=== PATIENT | male | born 1960 | race Caucasian/White ===

== ENCOUNTER 2017-01-09 14:24 | Emergency (ER) | payer OTHER ==
[~2017-01-09] VITALS: Ht 180.3 cm; Wt 95.5 kg
[~2017-01-09 14:24] MED LIST: IBUP-1827 PO; IBUP200C11 PO; NAPR220C11 PO
[2017-01-09 14:27] VITALS: BP 140/94; PULSE 72; O2SAT 97
[2017-01-09 14:53] LABS: BASOPHILS % (AUTO) 0.5 % (0-3); MONOCYTES % (AUTO) 6.9 % (4-12); Mean Corpuscular Hemoglobin 30.7 pg (27.0-35.0); Mean Corpuscular Volume 91.3 fL (81-100); NEUTROPHILS % (AUTO) 44.4 % (40-74); Platelet Count 173 bil/L (150-400)
[2017-01-09] MEDS ORDERED: 0.9% Sodium Chloride 1,000 ML IV ONE (15:04)
--- NOTE | 2017-01-09 15:04 | ED.REPORT ---
[facility]-Abd [facility] M 40 and Over Date of Service January 09, 2017 ED Provider: Duncan Rosenthal PA-C Malachi is a 56-year-old male with a history of chronic lymphocytic leukemia presented with a chief complaint of abdominal pain. Patient reports abdominal tenderness first noted at urgent care earlier today when he was seen for back pain. He also reports black, watery stool since this morning as well as foul- smelling, "bright orange" urine. Also reports lower back pain that began yesterday when moving a large dresser. X-rays taken at [facility] yesterday. Diagnosed musculoskeletal back pain and discharged with prescription for naproxen and cyclobenzaprine. Patient does not find this helpful. Admits history of back surgery at [facility] in 2013. Reports history of 3 polyps removed from his large intestine 5 years ago and history of appendectomy. Denies vomiting. Denies weakness or pain in lower extremity. Denies fever, DM, HIV, organ transplant, immunosuppression, recent surgery, recent infection, IV drug use. Denies bowel/bladder dysfunction and saddle anesthesia. Nursing Notes Stated Complaint: ABDOMINAL PAIN/RLQ TENDERNESS, FROM .C Chief Complaint: Male Abdominal Pain Nursing Notes Reviewed: Yes Allergies: Coded Allergies: No Known Allergies (Verified , 10/07/14) Scheduled PRN Ibuprofen (Advil) 200 Mg Capsule 200 MG PO PRN PRN PRN For Pain Ibuprofen (Ibuprofen) 600 Mg Tablet 600 MG PO QID PRN PRN For Pain Naproxen Sodium (Aleve) 220 Mg Capsule 220 MG PO PRN PRN PRN For Pain oxyCODONE (oxyCODONE) 5 Mg Tablet 5-10 MG PO QID PRN PRN For Pain General Time Seen by MD: 14:36 Chief Complaint Abdominal pain Sudden in Onset?: No Past Medical History Past Medical History Chronic back pain Pilondial cyst Reports: Hypertension Past Surgical History Reports: Appendectomy Smoking History Former Smoker Social History Drug Use: THC Ambulatory Status Independent Review of Systems General: Denies fever, chills, malaise. HEENT: Denies congestion, headache, sore throat. Respiratory: Denies dyspnea, cough, shortness of breath, wheezing. Cardiovascular: Denies chest pain, palpitations. Gastrointestinal: Admits abdominal pain, diarrhea. Denies vomiting Genitourinary: Denies frequency, urgency, dysuria, hematuria. Otherwise as noted in HPI. Physical Exam General: Well appearing, well developed, well nourished, no acute distress. Head: Atraumatic, normocephalic. Eyes: No scleral icterus or injection. No discharge. Vision grossly intact. ENT: Voice clear, hearing grossly intact. Respiratory: Regular rate and rhythm. Breath sounds present, clear to auscultation and equal bilaterally. No respiratory distress. No increased work of breathing, speaks in complete sentences. Cardiovascular: Regular rate and rhythm, without murmur, gallop or rub. No pedal edema. Gastrointestinal: Obese abdomen epigastric and in the lower quadrants to rapid, deep palpation. Negative rebound. Bowel sounds normoactive. Scar right lower quadrant consistent with appendectomy. Mass appreciated near xiphoid process which patient reports is related to his leukemia. No pulsatile mass appreciated. Legs: Negative edema, PT and DP pulses 2+. Skin: Warm and dry. Neurological: Antalgic gait, toe walk, heel walk. Hip flexion, knee extension, ankle dorsiflexion and plantarflexion strength 5/5 B/L. Patellar and Achilles reflexes present and equal B/L. Sensation to light touch intact at medial leg, dorsal foot and lateral foot B/L. negative seated straight leg raise, negative seated cross straight leg raise. Psychological: Alert and oriented. Speech appropriate, linear and logical. Behavior appropriate. Initial Vital Signs Vital Signs (First) Date Time Temp Pulse Resp B/P Pulse Ox O2 Delivery O2 Flow Rate FiO2 01/09/17 14:27 36.8 72 140/94 97 Room Air 01/09/17 17:22 20 Initial VS: Vital signs abnormal (blood pressure) Interpretation & Diagnostics Lab Results Interpretation Result Diagram: 01/09/17 1445 01/09/17 1445 Test 01/09/17 14:45 01/09/17 17:35 White Blood Count 12.9th/mm3 (3.8-10.1) Red Blood Count 5.31mil/mm3 (4.40-5.80) Hemoglobin 16.3g/dL (13.8-17.2) Hematocrit 48.5% (41.0-50.0) Mean Corpuscular Volume 91.3fL (81-100) Mean Corpuscular Hemoglobin 30.7pg (27.0-35.0) Mean Corpuscular Hemoglobin Concent 33.6% (32.0-37.0) Red Cell Distribution Width 13.4% (12.3-15.4) Platelet Count 173bil/L (150-400) Neutrophils (%) (Auto) 44.4% (40-74) Lymphocytes (%) (Auto) 46.9% (14-46) Monocytes (%) (Auto) 6.9% (4-12) Eosinophils (%) (Auto) 1.0% (0-5) Basophils (%) (Auto) 0.5% (0-3) Sodium Level 143mEq/L (134-144) Potassium Level 3.8mEq/L (3.5-5.2) Chloride Level 102mEq/L (97-108) Carbon Dioxide Level 24mmol/L (18-29) Blood Urea Nitrogen 18mg/dL (6-24) Creatinine 1.25mg/dL (0.76-1.27) Estimat Glomerular Filtration Rate 64mL/min (>59) Glucose Level 94mg/dL (60-99) Calcium Level 9.5mg/dL (8.5-10.1) Magnesium Level 2.3mg/dL (1.6-2.6) Total Bilirubin 0.6mg/dL (0.0-1.2) Aspartate Amino Transf (AST/SGOT) 22U/L (0-50) Alanine Aminotransferase (ALT/SGPT) 16U/L (0-44) Alkaline Phosphatase 95U/L (25-150) Total Protein 7.5g/dL (6.4-8.4) Albumin 4.5g/dL (3.4-5.0) Lipase 29U/L (13-60) Hold Mauro Top Tube Received (Received) Hold Urine Received (Received) CT Abd / Pelvis Interpretation PROCEDURE: CT ABDOMEN AND PELVIS WITH CONTRAST TRAUMA (PNL 7509) INDICATIONS: abdominal pain IMPRESSION: 1. No acute traumatic injury. 2. Colonic diverticulosis without evidence of diverticulitis. 3. Hepatic cysts. 4. Status post cholecystectomy. 5. Congenital bowel malrotation. 6. Mildly prominent loops of small bowel in the right lower quadrant without definite obstruction, hematoma or adjacent edema. Interpretation / Wet Read by: Interpret - Radiologist Re-Eval/Medical Decision Med Decision/Clinical Course 56-year-old male with a chief complaint of abdominal pain which was discovered at the urgent care will use being assessed for back pain. Lower abdominal pain/ tenderness associated with black watery diarrhea today. Negative fever. Physical examination reveals normal vital signs but diffuse abdominal tenderness. Guaiac negative. Neurological examination is normal. Discussed this case with Dr. Dumont who met with and examine the patient. CBC reveals mild cytosis. CT abdomen and pelvis with contrast reveals several incidental findings but no acute cause of abdominal pain. Urinalysis is reassuring regarding pyelonephritis, kidney stone. Normal stool guaiac is reassuring against GI bleed. History of gradually worsening abdominal pain is reassuring against AAA, aorta is normal on CT. Back pain is without red flag symptoms for acute disc herniation, cauda equina, infection, hematoma, trauma. Normal plain films performed at [facility] and CT scan performed here reassuring against cancer metastasis. I believe this is musculoskeletal back pain. Believe this patient is stable and safe for discharge to home. Advise over the counter analgesia with a small amount of oxycodone to supplement with precautions. Advise primary care follow-up, return to return precautions. Initial question is the best my ability. Patient verbalizes understanding of and consent to the plan. Discharge & Departure Primary Impression: Abdominal pain Abdominal location: unspecified location Qualified Code: R10.9 - Unspecified abdominal pain Additional Impressions: Low back pain Chronicity: acute Back pain laterality: midline Sciatica presence: without sciatica Qualified Code: M54.5 - Low back pain Elevated blood pressure reading Disposition: Home Vital Signs - All Vital Signs Date Time Temp Pulse Resp B/P Pulse Ox O2 Delivery O2 Flow Rate FiO2 01/09/17 17:55 36.6 78 20 144/91 99 Room Air 01/09/17 17:22 36.6 78 20 144/91 99 Room Air 01/09/17 14:27 36.8 72 140/94 97 Room Air )( All Prior VS Reviewed: Yes Condition: Stable Patient Instructions: Acute Abdominal Pain (ED) Additional Instructions: Evaluation in the emergency department for abdominal pain and low back pain included history, physical, blood work, urinalysis and CT scan. These were all reassuring that her pain is not caused by an immediately dangerous condition. I believe you are stable and safe to be discharged home. Your abdominal pain is most likely caused by a viral diarrhea. Back pain appears to be musculoskeletal, and treatment is largely symptomatic: Rest is important, especially for the next couple of days, but avoid total bed rest. Reasonable activity as tolerated is the best. Apply ice to the affected area 4 times a day for 20 minutes over the next 24 hours. After that you will probably find warm compresses most helpful. The pain is best treated with 500 mg of naproxen (Aleve) every 12 hours, or 1000 mg of acetaminophen (Tylenol) every 6 hours. These drugs can be taken at the same time for more severe pain. I will also write a prescription for a small amount of oxycodone for pain not controlled by these 2 other medications. Please do not drive or drink alcohol within 4 hours of taking this medication and use extreme caution if you use it in conjunction with your cyclobenzaprine ( Flexeril). If you become too sedated, discontinue one or the other. Most of all be patient: 70-90% of people with injuries presenting like yours will resolve within 7 weeks, even without treatment. Follow-up with your primary care provider in about 5 days to be sure your recovery is progressing as expected. Return the emergency department for new or worsening symptoms such as loss of bowel/bladder control, numbness between your legs, new weakness/ numbness or high fever. Return to the emergency department for increasing abdominal pain, vomiting that makes it impossible to keep down liquids. I also note that your blood pressure was elevated during your visit to the emergency department. Please discuss this with your primary care provider. Referrals: DUY ULLOA (PCP) EDSupervising Provider for APC: Fernandez Manriquez DO Attending Statement I have seen and examined the patient. I have reviewed the chart and agree with the documentation as recorded by the Midlevel Provider, including assessment, treatment plan, and disposition. Findings from my exam are included in documentation above. copies to: DUY ULLOA Seth PA-C January 09, 2017 15:04 Fernandez Manriquez DO January 09, 2017 15:20
[2017-01-09] MEDS ORDERED: Pantoprazole 4 mg/mL 10 mL Inj IVPUSH ONE (15:05)
[2017-01-09] MEDS ORDERED: Ondansetron 2 mg/mL 2 mL Inj IVPUSH ONE (15:05)
[2017-01-09 15:28] LABS: Magnesium 2.3 mg/dL (1.6-2.6)
--- NOTE | 2017-01-09 16:36 | DRSVH ---
PROCEDURE: CT ABDOMEN AND PELVIS WITH CONTRAST TRAUMA (PNL 7509) INDICATIONS: abdominal pain TECHNIQUE: After the administration of intravenous contrast, 5 mm thick sections acquired from the diaphragms to the symphysis. 5 mm thick coronal and sagittal reformats were acquired. Optional 10-minute delayed imaging may be performed from the kidneys to the bladder. For radiation dose reduction, the followi ng was used: automated exposure control, adjustment of mA and/or kV according to patient size. COMPARISON: [facility], CT, ABD/PELVIS W/CON (PNL), 12/24/2014, 11:13. [facility], CT, ABDOMEN W CONTRAST, 11/08/2011, 15:14. FINDINGS: Image quality: Excellent. ABDOMEN: Lung bases: Lung bases are clear. Heart size is normal. No pericardial effusion. Inferior ribs ar e intact. No basal pleural effusions or pneumothorax. Solid organs: Liver and spleen are normal in size and enhancement, without lacerations. Hepatic cyst s are stable in appearance. Gallbladder is surgically absent. Biliary system is non-dilated. Pancre as enhances normally, without transection. No adrenal hematomas. Both kidneys enhance normally, wit hout hydronephrosis or lacerations. Peritoneum and bowel: No free fluid or air. Unenhanced bowel loops demonstrate normal wall thicknes s. Several prominent loops of small bowel are noted in the right lower quadrant without associated he matoma or adjacent edema. Congenital bowel malrotation with cecum in the left lower quadrant. Scatter ed diverticuli noted in the colon without evidence of diverticulitis. Nodes and vessels: No retroperitoneal or mesenteric adenopathy. Aorta and inferior vena cava are no rmal in size and enhancement. Miscellaneous: No ventral hernias. PELVIS: Genitourinary: Bladder wall thickness is normal. Miscellaneous: No inguinal hernias or adenopathy. Bones: Pelvic ring and hip joints appear intact. Mild anterior wedging of the T12 vertebral body bernal s a chronic appearance. No acute vertebral compression fractures. Spine degenerative disc disease and facet arthropathy are noted. IMPRESSION: 1. No acute traumatic injury. 2. Colonic diverticulosis without evidence of diverticulitis. 3. Hepatic cysts. 4. Status post cholecystectomy. 5. Congenital bowel malrotation. 6. Mildly prominent loops of small bowel in the right lower quadrant without definite obstruction, he matoma or adjacent edema. Dictated by: Ronna Marmolejo MD, PhD on 01/09/2017 at 16:17 Approved by: Ronna Marmolejo MD, PhD on 01/09/2017 at 16:34
[2017-01-09] MEDS ORDERED: OXYC5TAB72 PO (17:09)
[2017-01-09 17:22] VITALS: BP 144/91; PULSE 78; RESP 20; O2SAT 99
[2017-01-09 17:55] VITALS: BP 144/91; PULSE 78; RESP 20; O2SAT 99
== END 2017-01-09 17:55 | disposition home or self-care (01) ==
LOC: SED 14:24
DX: R10.30 Lower abdominal pain, unspecified (principal); M54.9 Dorsalgia, unspecified; R03.0 Elevated blood-pressure reading, without diagnosis of hypertension; I10 Essential (primary) hypertension; Z85.6 Personal history of leukemia; Z97.10 Presence of artificial limb (complete) (partial), unspecified; Z87.891 Personal history of nicotine dependence
CPT/HCPCS: 36415; 74177; 80053; 82272; 83690; 83735; 85025; 86850; 96365; 96375; 99285; G0463; J2270; J2405; J7030; Q9967